=== PATIENT | male | born 1970 | race Two or more races ===

== ENCOUNTER → 2016-12-25 | Outpatient (CLI) | payer BC ==
--- NOTE | 2016-12-25 16:21 | MRI ---
MRI right knee without contrast Indication: Right knee pain and stiffness Comparison: None Technique: Multiplanar, multisequence MR images of the right knee were obtained without contrast. Findings: The marrow signal and bony alignment are normal, without evidence for acute fracture or morillo bluxation. There is mild chondrosis of the medial and lateral femorotibial compartments, without ful l-thickness chondral defect. The patellofemoral articular surfaces are grossly maintained There is a small free edge radial tear of the medial meniscal posterior horn, best seen on coronal P D image 20. The lateral meniscus is intact. The ACL, PCL, MCL, major lateral stabilizers, and extens or mechanism are intact, although there is some intermediate interstitial signal seen within the dis margarito quadriceps and proximal patellar tendon fibers, suggesting mild tendinosis. No significant joint effusion or popliteal cyst. There is mild nonspecific anterior knee subcutaneous edema, without dis crete collection. Impression: 1. Free edge radial tear of the medial meniscal posterior horn. 2. Mild distal quadriceps and proximal patellar tendinosis 3. Mild femorotibial chondrosis Reported By:
== END | disposition home or self-care (01) ==
LOC: RAD 15:16
PROVIDERS: ATTEND Specialist
DX: M25.561 Pain in right knee (principal); M25.562 Pain in left knee; M67.863 Other specified disorders of tendon, right knee; M94.261 Chondromalacia, right knee; S83.241A Other tear of medial meniscus, current injury, right knee, initial encounter; X58.XXXA Exposure to other specified factors, initial encounter
CPT/HCPCS: 73721